=== PATIENT | female | born 1985 | race African-American/Black ===

== ENCOUNTER 2020-06-20 11:05 | Outpatient (CLI) | payer OTHER, SELFPAY ==
--- NOTE | 2020-06-20 11:05 | LDADM ---
Addendum entered by Nilsa Singh RN 06/20/20 13:46: wrong note Original Note: This patient, Dharmesh Munoz, was admitted to OB Post 117 on at 11:05. Plans for labor, pain management and were discussed with patient. Patient/family oriented to hospital policies and general routines including ID bracelet, bed and alarms, visiting hours, pain management, procedures, bathroom and other care routines, personal items, smoking policy, room service/diet and guest tray routines, security routines, and visiting hours. Patient/Family are encouraged to report perceived risks to care and to ask questions if they do not understand what they are told or what they should do. See OBIX for further documentation.
--- NOTE | 2020-06-20 11:05 | PC.NURSE ---
Pt presented to unit with questionable ROM. Pt reports that she has had vaginal fluid that is more than usual. No vaginal bleeding or pain reported.
[2020-06-20 11:24] VITALS: BP 102/67; PULSE 103; TEMP 37.3
[2020-06-20 11:30] VITALS: BP 109/65; PULSE 104
--- NOTE | 2020-06-20 12:13 | PC.NURSE ---
SOHAM Huffman, contacted for orders regarding the presentation of pt to unit. Orders given Arnaud Lawrence RN to pt to d/c home and keep regular schedule OB appts. Pt instructed to present back to unit if rupture becomes a questions again. Pt nods in understanding. Pt d/c ambulatory, without pain.
== END 2020-06-20 12:15 | disposition home or self-care (01) ==
LOC: ANHOBOP 11:13 → ANHOBPP 11:16
PROVIDERS: Visit Provider Obstetrics & Gynecology
DX: O42.90 Premature rupture of membranes, unspecified as to length of time between rupture and onset of labor, unspecified weeks of gestation (principal); Z3A.00 Weeks of gestation of pregnancy not specified
CPT/HCPCS: 59025; 99199

== ENCOUNTER 2020-08-15 06:40 | Inpatient (IN) | payer OTHER, SELFPAY ==
[2020-08-15] VITALS (68 sets, daily range): BP systolic 81–124; BP diastolic 44–84; PULSE 71–229; RESP 18; TEMP 36.4–37.2; O2SAT 98–100; BMI 25.7
--- NOTE | 2020-08-15 06:40 | LDADM ---
This patient, Dharmesh Munoz, was admitted to Labor/Delivery/Recovery 108 on 08/15/20 at 06:40. Plans for labor, pain management and were discussed with patient. Patient/family oriented to hospital policies and general routines including ID bracelet, bed and alarms, visiting hours, pain management, procedures, bathroom and other care routines, personal items, smoking policy, room service/diet and guest tray routines, security routines, and visiting hours. Patient/Family are encouraged to report perceived risks to care and to ask questions if they do not understand what they are told or what they should do. See OBIX for further documentation.
[2020-08-15] MEDS: LACTATED RINGERS 1,000 ML 125 ML IV CONT ×3 (07:33→15:16)
[2020-08-15] MEDS: OXYTOCIN 30 UNITS/NS 500 ML 30 UNITS/500 ML BAG IV CONT (07:34)
[2020-08-15 07:43] LABS: Basophils Percent Auto 0.2 % (0.2-1.2); Eosinophils Absolute Auto 0.1 K/mm3 (0-0.3); Eosinophils Percent Auto 0.9 % (0-4.4); Hematocrit 32.3 % (37.0-47.0); Hemoglobin 10.2 g/dL (12.0-15.0); Immature Granulocyte Absolute 0.09 K/mm3 (0.00-0.031); Immature Granulocyte Percent A 0.9 % (0-0.5); Lymphocytes Absolute Auto 1.93 K/mm3 (0.9-3.2); Lymphocytes Percent Auto 20.1 % (18.3-44.2); Mean Corpuscular HGB Conc 31.6 g/dl (32-36); Mean Corpuscular Hemoglobin 25.6 pg (26-34); Mean Platelet Volume 11.1 fl (7.4-10.4); Monocytes Absolute Auto 0.6 K/mm3 (0.1-0.6); Monocytes Percent Auto 6.7 % (2.6-8.5); Neutrophils Absolute Auto 6.8 K/mm3 (1.3-6.7); Neutrophils Percent Auto 71.2 % (45.5-73.1); Platelet Count Result 213 k/mm3 (150-375); Red Blood Count 3.99 M/mm3 (4.2-5.4); Red Cell Distribution Width 15.9 % (11.5-14.5); White Blood Count 9.6 K/mm3 (4.5-10.0)
[2020-08-15 08:45] LABS: Rapid Plasma Reagin Non-Reactive (NonReactive)
--- NOTE | 2020-08-15 10:45 | WPDANESEPPF ---
Anes - Initial Pre Proc Eval Procedure: labor epidural Date/Time: 08/15/20 10:45 Surgeon: Luis Alberto Ascencio MD Pre Op Diagnosis: labor pain Pre Op Diagnosis: Induction of Labor Patient Data Age: 34 Gender: F Height: Weight: Last Vital Signs Temp 36.4 C L 08/15/20 07:11 Pulse 229 H 08/15/20 10:30 BP 101/69 08/15/20 10:30 Pulse Ox 100 08/15/20 10:08 Allergies Allergy/AdvReac Type Severity Reaction Status Date / Time No Known Allergies Verified 10/13/09 19:18 Home Medications Medication Instructions Recorded Confirmed Type PNV cmb#95-ferrous fumarate-FA 1 tablet PO DAILY 08/07/20 08/07/20 History [] ferrous sulfate [Iron (ferrous 325 mg PO DAILY 08/07/20 08/07/20 History sulfate)] Laboratory Tests 08/15/20 08/15/20 08/15/20 07:20 07:20 07:20 WBC 9.6 K/mm3 K/mm3 (4.5-10.0) RBC 3.99 M/mm3 L M/mm3 (4.2-5.4) Hgb 10.2 g/dL L g/dL (12.0-15.0) Hct 32.3 % L % (37.0-47.0) MCV 81.0 fl fl (80-100) MCH 25.6 pg L pg (26-34) MCHC 31.6 g/dl L g/dl (32-36) RDW 15.9 % H % (11.5-14.5) Plt Count 213 k/mm3 k/mm3 (150-375) MPV 11.1 fl H fl (7.4-10.4) Immature Gran % (Auto) 0.9 % H % (0-0.5) Neut % (Auto) 71.2 % % (45.5-73.1) Lymph % (Auto) 20.1 % % (18.3-44.2) [place] % (Auto) 6.7 % % (2.6-8.5) Eos % (Auto) 0.9 % % (0-4.4) Baso % (Auto) 0.2 % % (0.2-1.2) Lymph # (Auto) 1.93 K/mm3 K/mm3 (0.9-3.2) [place] # (Auto) 0.6 K/mm3 K/mm3 (0.1-0.6) Eos # (Auto) 0.1 K/mm3 K/mm3 (0-0.3) Baso # (Auto) 0.0 K/mm3 K/mm3 (0.0-0.1) Abs Immat Gran (auto) 0.09 K/mm3 H K/mm3 (0.00-0.031) Absolute Neuts (auto) 6.8 K/mm3 H K/mm3 (1.3-6.7) Absolute Nucleated RBC 0.0 K/mm3 K/mm3 (0.0-0.012) Nucleated RBC % 0.0 % % (0.0-0.2) RPR Non-reactive (NonReactive) Blood Type A Positive Antibody Screen Negative Patient hx anesthesia problems: none Family hx anesthesia problems: none PMFSH Family History Family History (Updated 08/07/20 @ 13:46 by Olegario Parra RN) Father Diabetes mellitus Hypertension Social History Social History Smoking status: Never smoker Substance use: never Gender identity (if verbalized by the patient): Female Spiritual care concerns: No Anes - Eval Final PreProcedure Day of Procedure 08/15/20 10:45 Patient weight: normal ASA classification: II Anesthesia type and monitoring: regional epidural Informed Consent: The patient's anesthetic plan and its attendant risks and benefits were discussed with the patient/family/POA. Questions were solicited and answers provided to the satisfaction of the patient/family/POA.
--- NOTE | 2020-08-15 17:12 | PM.OBPRVD ---
OB - Delivery Note Procedure Delivery date: 08/15/20 Intrapartal events: None Induction method: per pitocin protocol Delivery monitor: external FHT and external uterine Route of delivery: Episiotomy description: None Laceration Description: None Quantitative Blood Loss (ml): 104 Anesthesia type: Epidural Narrative: Mother and baby in stable condition. Cord gasses collected and handed off to staff. [place] Baby Date of : 08/15/20 Time of : 16:58 Weeks of gestation at delivery: 39 Infant gender: Male Weight (pounds): 7 Weight (ounces): 15 presentation: vertex position: Left Occiput Anterior Placenta delivery description: Spontaneous cord vessel description: 3 Vessels and Delayed Cord Clamping score one minute: 8 score five minutes: 9
--- NOTE | 2020-08-15 17:14 | WPDOBADMIT ---
Obstetrics - Admit Note Admission Note: Here for induction of labor. record reviewed. No pertinent additions to the history and/or any subsequent changes in the physical findings that are not consistent with the expected course of the were found. Additions to the history and/or subsequent changes in the physical findings follow. None.
[2020-08-15] MEDS: OXYTOCIN 30 UNITS/NS 500 ML 30 UNITS/500 ML BAG 125 UNITS IV CONT (17:25)
[2020-08-15] MEDS: BENZOCAINE 20% AER SPR (*SP) 56 GM CAN 1 SPRAY TOPICAL (19:21)
[2020-08-15] MEDS: WITCH HAZEL 40 PADS 1 PAD TOPICAL (19:22)
--- NOTE | 2020-08-15 19:45 | OBPPTRN ---
Patient transferred to post room #280 via wheelchair. Support person present. Oriented to unit, room, information board, rooming in, admission packet and security measures. Patient verbalizes understanding.
[2020-08-15] MEDS: IBUPROFEN 600 MG TABLET PO (21:05)
[2020-08-15] MEDS: LANOLIN (LANSINOH) 7.5 GM CREAM 1 APPLIC TOPICAL (21:06)
[2020-08-16 03:45] VITALS: BP 101/55; PULSE 82; RESP 18; TEMP 36.7; O2SAT 99
[2020-08-16 06:00] LABS: Hematocrit 32.5 % (37.0-47.0); Hemoglobin 10.1 g/dL (12.0-15.0)
--- NOTE | 2020-08-16 07:24 | P.PNOB_ITS ---
OB - PN: Subj Subjective Date/time seen: 08/16/20 07:24 Patient comments: no complaints baby status: doing well OB - PN: Obj Data Labs CBC & Chem 7: 08/16/20 03:32 Labs: Laboratory Results - last 24 hr 08/15/20 08/15/20 08/15/20 07:20 07:20 07:20 WBC 9.6 RBC 3.99 L Hgb 10.2 L Hct 32.3 L MCV 81.0 MCH 25.6 L MCHC 31.6 L RDW 15.9 H Plt Count 213 MPV 11.1 H Immature Gran % (Auto) 0.9 H Neut % (Auto) 71.2 Lymph % (Auto) 20.1 [place] % (Auto) 6.7 Eos % (Auto) 0.9 Baso % (Auto) 0.2 Lymph # (Auto) 1.93 [place] # (Auto) 0.6 Eos # (Auto) 0.1 Baso # (Auto) 0.0 Abs Immat Gran (auto) 0.09 H Absolute Neuts (auto) 6.8 H Absolute Nucleated RBC 0.0 Nucleated RBC % 0.0 RPR Non-reactive Blood Type A Positive Antibody Screen Negative 08/16/20 03:32 WBC RBC Hgb 10.1 L Hct 32.5 L MCV MCH MCHC RDW Plt Count MPV Immature Gran % (Auto) Neut % (Auto) Lymph % (Auto) [place] % (Auto) Eos % (Auto) Baso % (Auto) Lymph # (Auto) [place] # (Auto) Eos # (Auto) Baso # (Auto) Abs Immat Gran (auto) Absolute Neuts (auto) Absolute Nucleated RBC Nucleated RBC % RPR Blood Type Antibody Screen OB - PN A/P Plan day: 1 Plan: routine care Time Spent With Patient Time: Total time spent is greater than 50% in coordination of care (as documented) at patient's floor/unit and/or counseling patient: Review of Systems Review of Systems: All systems reviewed & are unremarkable except as noted in HPI and below Exam Const: General: cooperative Nutritional Appearance: average body habitus Psych: Affect: normal affect Thought process: Normal thought process present Thought content: Yes Normal thought content present Insight: Good insight present (Psych) Judgement: Good judgement present (Psych)
--- NOTE | 2020-08-16 07:36 | PM.OBDSVD ---
DS: Admitting Diagnosis Admitting Diagnosis Admitting Diagnosis: [facility] OB - DS: Summary OB Procedures : None OB Procedures Intrapartum: Spontaneous Vag Delivery OB Procedures: : None Time Spent with Patient Time attestation: Total time spent providing and/or coordinating discharge services: DS: Data Data Completed and Pending Labs on day of discharge: Labs from last 24 hours 08/16/20 08/15/20 08/15/20 03:32 07:20 07:20 WBC RBC Hgb 10.1 L Hct 32.5 L MCV MCH MCHC RDW Plt Count MPV Immature Gran % (Auto) Neut % (Auto) Lymph % (Auto) [place] % (Auto) Eos % (Auto) Baso % (Auto) Lymph # (Auto) [place] # (Auto) Eos # (Auto) Baso # (Auto) Abs Immat Gran (auto) Absolute Neuts (auto) Absolute Nucleated RBC Nucleated RBC % RPR Non-reactive Blood Type A Positive Antibody Screen Negative 08/15/20 07:20 WBC 9.6 RBC 3.99 L Hgb 10.2 L Hct 32.3 L MCV 81.0 MCH 25.6 L MCHC 31.6 L RDW 15.9 H Plt Count 213 MPV 11.1 H Immature Gran % (Auto) 0.9 H Neut % (Auto) 71.2 Lymph % (Auto) 20.1 [place] % (Auto) 6.7 Eos % (Auto) 0.9 Baso % (Auto) 0.2 Lymph # (Auto) 1.93 [place] # (Auto) 0.6 Eos # (Auto) 0.1 Baso # (Auto) 0.0 Abs Immat Gran (auto) 0.09 H Absolute Neuts (auto) 6.8 H Absolute Nucleated RBC 0.0 Nucleated RBC % 0.0 RPR Blood Type Antibody Screen Discharge Plan Discharge Attending physician on discharge: Luis Alberto Ascencio Discharging Clinician: Samira Bucio Patient Disposition: Home, Self-Care Activity: pelvic rest Diet: regular Patient Instructions: Antibiotic Form Stand Alone Forms: General Discharge Information Follow-up/Referrals: Armida Vanegas CNM [Certified Nurse Painter [employer]] - 4 Weeks Discharge Medications: Continued ferrous sulfate [Iron (ferrous sulfate)] 325 mg (65 mg iron) Tablet 325 mg PO DAILY RF: 0 PNV cmb#95-ferrous fumarate-FA [] 28 mg iron- 800 mcg Tablet 1 tablet PO DAILY RF: 0 Date of admission: 08/15/20 06:40 Primary Care Provider: PHYSICIAN,DIRECTOR OF WEB MARKETING Admitting Provider: Luis Alberto Ascencio Attending physician on admission: Luis Alberto Ascencio Condition: Stable
[2020-08-16 08:20] VITALS: BP 91/61; PULSE 88; RESP 18; TEMP 37.1; O2SAT 98
[2020-08-16 08:30] VITALS: PULSE 82; RESP 18; O2SAT 99
[2020-08-16] MEDS: IBUPROFEN 600 MG TABLET PO (09:00)
[2020-08-16] MEDS: MULTIVIT/MIN/PREN/FOL AC/IRON TABLET 1 TAB PO (09:01)
--- NOTE | 2020-08-16 09:43 | WPDANLDPN2 ---
Anes-Prog Note L&D Date/Time: 08/16/20 09:43 Comfortable throughout: labor and delivery Neuraxial method: epidural Epidural/Spinal procedure site: tender (localized tenderness at L3-4 insertion site) Neuro status: Neuro function grossly intact. Cardiovascular status: normal Respiratory status: normal Airway patency: baseline Mental status: baseline Post-Op hydration status: normal Vital Signs: Last Vital Signs Temp 37.1 C 08/16/20 08:20 Pulse 82 08/16/20 08:30 Resp 18 08/16/20 08:30 BP 91/61 L 08/16/20 08:20 Pulse Ox 99 08/16/20 08:30 Pain score (VAS): 04/02 I/O: Intake & Output 08/15/20 08/16/20 08/16/20 23:59 07:59 15:59 Intake Total 1300 Output Total 75 Balance 1225 Post-procedural complaints: none Patient feedback: Patient satisfied with anesthetic care.
--- NOTE | 2020-08-16 11:15 | PC.NURSE ---
1115Mother called out for assist with feeding. Mother reports infant is eagerly latching, she has slight tenderness with feedings. Reviewed feeding cues, frequencies, duration of feedings, feeding elimination flow sheet, and signs of adequate intake. Demonstrated stimulation techniques to wake for feeding. Assisted with to breast. Reviewed positioning/alignment in cross cradle, holding breast in ?U? hold and guided asymmetrical latch on. able to latch correctly. nursed eagerly, with steady draws and frequent swallowing noted. Reviewed signs of a correct latch, effective nursing and suck swallow ratio. Mother quickly switched to cradle position. slipped to shallow latch, mother reports tenderness. Discussed cross cradle and holding breast during feeding to assist with maintaining deep latch. Demonstrated how to adjust latch more deeply while feeding. Mother reports she can feel change in latch and has no tenderness. Nipple care reviewed of lanolin after feedings, warm compresses as needed. was able to maintain latch without discomfort to mother. Suggested mother stimulate while feeding to increase stimulate, increase intake and to assist with maintaining deep latch. Instructed mother to call out for RN assistance if she is unable to latch infant for feeding or she has discomfort with nursing. Instructed feeding should be initiated three hours from start of last feeding or if feeding cues are noted before. Mother voiced understanding of information shared
[2020-08-16 12:30] VITALS: PULSE 70; RESP 16; O2SAT 100
[2020-08-16 13:07] VITALS: BP 118/46; PULSE 70; RESP 16; TEMP 37.2; O2SAT 100
--- NOTE | 2020-08-16 15:25 | PC.NURSE ---
Patient was given the opportunity to view the discharge video Mother & Baby Care, The First Two Weeks and to ask questions. Patient declined viewing the video and has been given the mother/baby guide for home reference.
[2020-08-18 11:04] VITALS: BP 107/69; PULSE 84; RESP 20; TEMP 37.4; O2SAT 100
== END 2020-08-16 19:50 | disposition home or self-care (01) | DRG 560 ==
LOC: ANHLDR 06:45 → ANHOB2 20:23
PROVIDERS: Advanced Practice Midwife; Admitting Provider Obstetrics & Gynecology; Visit Provider Obstetrics & Gynecology
DX: O80 Encounter for full-term uncomplicated delivery (principal); Z37.0 Single live birth; Z3A.39 39 weeks gestation of pregnancy
CPT/HCPCS: 36415; 85014; 85018; 85025; 86592; 86850; 86900; 86901; A9270; J2590; J2795; J7120

== ENCOUNTER 2021-10-03 15:25 | Emergency (ER) | payer OTHER, SELFPAY ==
[2021-10-03 15:35] VITALS: BP 100/74; PULSE 132; RESP 16; TEMP 37; O2SAT 100
--- NOTE | 2021-10-03 16:10 | ED.ALLEREA ---
HPI - Allergic Reaction General Chief complaint: Allergic Reaction Stated complaint: AXR Time Seen by Provider: 10/03/21 16:01 History of Present Illness HPI narrative: 36-year-old female presents the emergency room sudden onset of pruritic rash. Patient denies any new medications, new foods, environmental exposures. Denies shortness of breath or difficulty breathing. Denies fever. States he tried Benadryl multiple occasions as temporarily relieve her symptoms. Patient is also tried Zyrtec and Jes with similar results. Related Data Home Medications Medication Instructions Recorded Confirmed ferrous sulfate 325 mg (65 mg 325 mg PO DAILY 08/07/20 08/07/20 iron) tablet (Iron (ferrous sulfate)) vit no.95-ferrous 1 tablet PO DAILY 08/07/20 08/07/20 fumarate 28 mg-folic acid 800 mcg tablet () Allergies Allergy/AdvReac Type Severity Reaction Status Date / Time No Known Allergies Verified 10/13/09 19:18 Review of Systems Review of Systems: CONSTITUTIONAL: Denies fever, chills, or sweats. EYES: Denies visual changes, redness, or discharge. ENT: Denies rhinorrhea, congestion, sore throat, or otalgia. CARDIOVASCULAR: Denies chest pain, palpitations, or edema. RESPIRATORY: Denies cough or dyspnea. GASTROINTESTINAL: Denies abdominal pain, nausea, vomiting, or diarrhea. GENITOURINARY: Denies dysuria or hematuria. SKIN: Reports pruritic rash MUSCULOSKELETAL: Denies back pain, joint pain, or myalgia. NEUROLOGIC: Denies headache, numbness, dizziness, or weakness. PSYCHIATRIC: Denies anxiety or depression. [facility] Family History Family History Father Diabetes mellitus Hypertension Social History Social History Smoking status: Never smoker Substance use: never Gender identity (if verbalized by the patient): Female Spiritual care concerns: No Exam Narrative: GENERAL: Well-appearing, well-nourished, no physical limitations, and in no acute distress. HEAD: Normocephalic, atraumatic. EYES: Conjunctivae normal, PERRLA and EOMI. NECK: Supple. No adenopathy or masses. CHEST: Clear to auscultation. No respiratory distress. No wheezes rales or rhonchi. No tenderness. HEART: Regular rate and rhythm. No murmur heard. Normal peripheral pulses. EXTREMITIES: Normal range of motion. No edema. No clubbing or cyanosis SKIN: Hives diffusely scattered NEURO: No focal deficits. Alert and oriented x3. MAEW. CN's II-XI intact bilaterally, normal gait PSYCH: Cooperative. Normal mood and affect. Course Vital Signs Vital signs: Vital Signs Temperature 37.0 C 10/03/21 15:35 Pulse Rate 132 H 10/03/21 15:35 Respiratory Rate 16 10/03/21 15:35 Blood Pressure 100/74 10/03/21 15:35 Pulse Oximetry 100 10/03/21 15:35 Oxygen Delivery Room Air 10/03/21 15:35 Temperature 37.0 C 10/03/21 15:35 Pulse Rate 132 H 10/03/21 15:35 Respiratory Rate 16 10/03/21 15:35 Blood Pressure 100/74 10/03/21 15:35 Pulse Oximetry 100 10/03/21 15:35 Oxygen Delivery Room Air 10/03/21 15:35 Discharge Plan Discharge Clinical Impression: Allergic reaction, Urticaria Patient Disposition: Home, Self-Care Condition: Stable Instructions: Antibiotic Form, Acute Rash (ED), Allergies (ED) Prescriptions: New hydroxyzine pamoate [Vistaril] 50 mg capsule 50 mg PO HS Qty: 15 0RF prednisone 20 mg tablet 60 mg PO DAILY 5 Days Qty: 15 0RF No Action ferrous sulfate [Iron (ferrous sulfate)] 325 mg (65 mg iron) Tablet 325 mg PO DAILY PNV cmb#95-ferrous fumarate-FA [] 28 mg iron- 800 mcg Tablet 1 tablet PO DAILY Follow-up/Referrals: PHYSICIAN,BUTTERMAKER [employer]INU[employer] CHURN [Primary Care Provider] - Time of Disposition: 17:20
[2021-10-03] MEDS: SODIUM CHLORIDE 0.9% IV 1,000 ML 999 ML IV CONT (16:19)
[2021-10-03] MEDS: diphenhydrAMINE HCl INJ 50 MG/ML VIAL 25 MG IV PUSH (16:19)
[2021-10-03] MEDS: FAMOTIDINE 20 MG/2 ML VIAL IV PUSH (16:19)
[2021-10-03] MEDS: methylPREDNISolone SOD SUCC 125 MG VIAL IV PUSH (16:19)
[2021-10-03 17:50] VITALS: PULSE 105; RESP 18; O2SAT 98
== END 2021-10-03 18:07 | disposition home or self-care (01) ==
PROVIDERS: Emergency Provider Nurse Practitioner Family
DX: L50.0 Allergic urticaria (principal)
CPT/HCPCS: 96361; 96374; 96375; 99284; J1200; J2930; J7030

== ENCOUNTER 2021-10-25 16:46 | Emergency (ER) | payer OTHER, SELFPAY ==
[2021-10-25 16:48] VITALS: BP 128/70; PULSE 120; RESP 18; O2SAT 100
--- NOTE | 2021-10-25 16:54 | PC.NURSE ---
EDP at bedside to assess pt.
--- NOTE | 2021-10-25 17:03 | ED.ALLEREA ---
HPI - Allergic Reaction General Chief complaint: Allergic Reaction Stated complaint: allergic reaction Time Seen by Provider: 10/25/21 16:50 History of Present Illness HPI narrative: 36-year-old female presents the emergency room with a sudden onset of a pruritic rash to her arms legs and torso. Patient states the rash has been present for about 3 days. She believes the rash is due to a new lotion that she is using. Has taken Benadryl and Jes with minimal improvement in symptoms. Patient denies fever shortness of breath difficulty breathing Related Data Home Medications Medication Instructions Recorded Confirmed ferrous sulfate 325 mg (65 mg 325 mg PO DAILY 08/07/20 08/07/20 iron) tablet (Iron (ferrous sulfate)) vit no.95-ferrous 1 tablet PO DAILY 08/07/20 08/07/20 fumarate 28 mg-folic acid 800 mcg tablet () Allergies Allergy/AdvReac Type Severity Reaction Status Date / Time No Known Allergies Verified 10/13/09 19:18 Review of Systems Review of Systems: CONSTITUTIONAL: Denies fever, chills, or sweats. EYES: Denies visual changes, redness, or discharge. ENT: Denies rhinorrhea, congestion, sore throat, or otalgia. CARDIOVASCULAR: Denies chest pain, palpitations, or edema. RESPIRATORY: Denies cough or dyspnea. GASTROINTESTINAL: Denies abdominal pain, nausea, vomiting, or diarrhea. GENITOURINARY: Denies dysuria or hematuria. SKIN: Reports rash MUSCULOSKELETAL: Denies back pain, joint pain, or myalgia. NEUROLOGIC: Denies headache, numbness, dizziness, or weakness. PSYCHIATRIC: Denies anxiety or depression. [facility] Family History Family History Father Diabetes mellitus Hypertension Social History Social History Smoking status: Never smoker Substance use: never Gender identity (if verbalized by the patient): Female Spiritual care concerns: No Exam Narrative: GENERAL: Well-appearing, well-nourished, no physical limitations, and in no acute distress. HEAD: Normocephalic, atraumatic. EYES: Conjunctivae normal, PERRLA and EOMI. ENT: External nose normal, Nares clear, no rhinorrhea or epistaxis. Mucous membranes moist. Oropharynx without tonsillar hypertrophy exudate or other lesions. External ears normal, bilateral TMs normal bilaterally NECK: Supple. No adenopathy or masses. CHEST: Clear to auscultation. No respiratory distress. No wheezes rales or rhonchi. No tenderness. HEART: Regular rate and rhythm. No murmur heard. Normal peripheral pulses. EXTREMITIES: Normal range of motion. No edema. No clubbing or cyanosis SKIN: Urticaria noted to the upper extremities, lower extremities and torso NEURO: No focal deficits. Alert and oriented x3. MAEW. CN's II-XI intact bilaterally, normal gait PSYCH: Cooperative. Normal mood and affect. Course Vital Signs Vital signs: Vital Signs Pulse Rate 120 H 10/25/21 16:48 Respiratory Rate 18 10/25/21 16:48 Blood Pressure 128/70 10/25/21 16:48 Pulse Oximetry 100 10/25/21 16:48 Oxygen Delivery Room Air 10/25/21 16:48 Pulse Rate 120 H 10/25/21 16:48 Respiratory Rate 18 10/25/21 16:48 Blood Pressure 128/70 10/25/21 16:48 Pulse Oximetry 100 10/25/21 16:48 Oxygen Delivery Room Air 10/25/21 16:48 Discharge Plan Discharge Clinical Impression: Allergic reaction, Urticaria Patient Disposition: Home, Self-Care Condition: Stable Instructions: Antibiotic Form Additional Instructions: Begin taking prednisone on Friday. May take a daily Pepcid. Continue taking Benadryl at night and Jes during the day. Follow-up with your primary care physician Prescriptions: New prednisone 20 mg tablet 60 mg PO DAILY 5 Days Qty: 15 0RF No Action ferrous sulfate [Iron (ferrous sulfate)] 325 mg (65 mg iron) Tablet 325 mg PO DAILY PNV cmb#95-ferrous fumarate-FA [[place]ata
[2021-10-25] MEDS: methylPREDNISolone SOD SUCC 125 MG VIAL IV PUSH (17:09)
[2021-10-25] MEDS: diphenhydrAMINE HCl INJ 50 MG/ML VIAL IV PUSH (17:09)
[2021-10-25] MEDS: SODIUM CHLORIDE 0.9% IV 1,000 ML 999 ML IV CONT (17:11)
[2021-10-25] MEDS: FAMOTIDINE 20 MG/2 ML VIAL IV PUSH (17:14)
[2021-10-25 17:51] VITALS: PULSE 105; RESP 18; O2SAT 100
--- NOTE | 2021-11-09 11:14 | PC.NURSE ---
NS IVF stopped prior to discharge. Stopped 10/25/21 at 1855
== END 2021-10-25 17:53 | disposition home or self-care (01) ==
PROVIDERS: Emergency Provider Nurse Practitioner Family; PCP Physician Assistant
DX: L50.0 Allergic urticaria (principal)
CPT/HCPCS: 96361; 96374; 96375; 99284; J1200; J2930; J7030